=== PATIENT | female | born 1990 | race American Indian/Alaskan Native ===

== ENCOUNTER 2019-03-28 11:24 | Emergency (ER) | payer OTHER ==
[2019-03-28] MEDS ORDERED: NACL 0.9% 1000 ML 1,000 ML IV ONE ×2 (11:48→11:55)
[2019-03-28] MEDS ORDERED: MORPHINE IV ONE (11:51)
[2019-03-28] MEDS ORDERED: ZOFRAN IV ONE (11:51)
--- NOTE | 2019-03-28 12:43 | Emergency Department Report ---
ED General Adult HPI - General Chief complaint: Abdominal Pain Stated complaint: ETOH/ABD PAIN Time Seen by Provider: 03/28/19 11:48 Source: patient, EMS Mode of arrival: Stretcher Limitations: No Limitations - History of Present Illness Initial comments: This is a 29-year-old female who presents to the emergency department poorly cooperative, anxious and agitated. As far as I can tell, as she is writhing on the gurney, she has had abdominal pain and vomiting for the past several hours. She will not localize the pain to any specific area of her abdomen. She does not answer questions appropriately. The triage note suggested alcohol abuse. This is actually unknown at this time. Previous electronic medical records on this patient are not found. She states she is never gone to the emergency department for abdominal pain before. She states that she has "already had it" with respect to her menses. Quality: aching Consistency: constant Improves with: none Worsens with: none - Related Data Allergies Allergy/AdvReac Type Severity Reaction Status Date / Time No Known Allergies Allergy Unverified 03/28/19 11:27 ED Review of Systems ROS: Stated complaint: ETOH/ABD PAIN Other details as noted in HPI Comment: Unobtainable due to pts medical conditions ED Past Medical Hx - Past Medical History Previous Medical History?: No Additional medical history: Denies past medical history - Surgical History Past Surgical History?: No - Social History Smoking Status: Current Every Day Smoker Substance Use Type: Alcohol ED Physical Exam - General Limitations: Physical Limitation (writing on the gurney) General appearance: other (agitated) - Head Head exam: Present: atraumatic, normocephalic - Eye Eye exam: Present: normal appearance. Absent: scleral icterus - ENT ENT exam: Present: mucous membranes dry (somewhat) - Neck Neck exam: Present: normal inspection. Absent: tenderness, meningismus - Respiratory Respiratory exam: Present: normal lung sounds bilaterally. Absent: respiratory distress - Cardiovascular Cardiovascular Exam: Present: regular rate, normal rhythm. Absent: systolic murmur, diastolic murmur, rubs, gallop - GI/Abdominal GI/Abdominal exam: Present: soft, normal bowel sounds. Absent: distended, tenderness, guarding, rebound, rigid - Neurological Exam Neurological exam: Present: CN II-XII intact. Absent: motor sensory deficit - Psychiatric Psychiatric exam: Present: agitated, anxious - Skin Skin exam: Present: warm, dry, intact, normal color. Absent: rash ED Course Vital Signs 03/28/19 03/28/19 03/28/19 12:00 12:07 12:28 Temperature 97.8 F Pulse Rate 88 74 Respiratory 15 Rate Blood Pressure 93/63 Blood Pressure 114/71 [Left] O2 Sat by Pulse 100 100 Oximetry - Reevaluation(s) Reevaluation #1: She is given fluid resuscitation. Her initial blood pressure was low. She is given antiemetics. Analgesia is pending with improvement of her blood pressure. Laboratory is pending. 03/28/19 12:43 Reevaluation #2: The patient was given IV fluid. Her vomiting improved. She was given analgesia. She was given antiemetics. She did not even wait for laboratory results. She left without discharge. 03/28/19 14:51 ED Medical Decision Making - Lab Data Result diagrams: 03/28/19 12:28 03/28/19 12:28 Laboratory Results - last 24 hr 03/28/19 03/28/19 03/28/19 12:28 12:28 12:28 WBC 6.1 RBC 4.80 Hgb 14.3 Hct 42.3 MCV 88 MCH 30 MCHC 34 RDW 13.7 Plt Count 288 Lymph % (Auto) 18.5 [place] % (Auto) 1.2 Eos % (Auto) 0.1 Baso % (Auto) 0.6 Lymph # 1.1 L [place] # 0.1 Eos # 0.0 Baso # 0.0 Seg Neutrophils % 79.6 H Seg Neutrophils # 4.8 PT 14.3 INR 1.14 H HCG, Qual Negative Plasma/Serum Alcohol 03/28/19 12:28 WBC RBC Hgb Hct MCV MCH MCHC RDW Plt Count Lymph % (Auto) [place] % (Auto) Eos % (Auto) Baso % (Auto) Lymph # [place] # Eos # Baso # Seg Neutrophils % Seg Neutrophils # PT INR HCG, Qual Plasma/Serum Alcohol 0.05 Laboratory Results - last 24 hr 03/28/19 03/28/19 03/28/19 12:28 12:28 12:28 WBC 6.1 RBC 4.80 Hgb 14.3 Hct 42.3 MCV 88 MCH 30 MCHC 34 RDW 13.7 Plt Count 288 Lymph % (Auto) 18.5 [place] % (Auto) 1.2 Eos % (Auto) 0.1 Baso % (Auto) 0.6 Lymph # 1.1 L [place] # 0.1 Eos # 0.0 Baso # 0.0 Seg Neutrophils % 79.6 H Seg Neutrophils # 4.8 PT 14.3 INR 1.14 H HCG, Qual Negative Plasma/Serum Alcohol 03/28/19 12:28 WBC RBC Hgb Hct MCV MCH MCHC RDW Plt Count Lymph % (Auto) [place] % (Auto) Eos % (Auto) Baso % (Auto) Lymph # [place] # Eos # Baso # Seg Neutrophils % Seg Neutrophils # PT INR HCG, Qual Plasma/Serum Alcohol 0.05 Laboratory Results - last 24 hr 03/28/19 03/28/19 03/28/19 12:28 12:28 12:28 WBC 6.1 RBC 4.80 Hgb 14.3 Hct 42.3 MCV 88 MCH 30 MCHC 34 RDW 13.7 Plt Count 288 Lymph % (Auto) 18.5 [place] % (Auto) 1.2 Eos % (Auto) 0.1 Baso % (Auto) 0.6 Lymph # 1.1 L [place] # 0.1 Eos # 0.0 Baso # 0.0 Seg Neutrophils % 79.6 H Seg Neutrophils # 4.8 PT 14.3 INR 1.14 H Sodium 140 Potassium 4.5 Chloride 105.5 Carbon Dioxide 16 L Anion Gap 23 BUN 8 Creatinine 0.5 L Estimated GFR > 60 BUN/Creatinine Ratio 16 Glucose 126 H Calcium 8.8 Total Bilirubin 0.50 Direct Bilirubin < 0.2 Indirect Bilirubin 0.3 AST 30 ALT 24 Alkaline Phosphatase 53 Total Protein 7.8 Albumin 4.1 Albumin/Globulin Ratio 1.1 Lipase 17 HCG, Qual Plasma/Serum Alcohol Blood Type Antibody Screen 03/28/19 03/28/19 03/28/19 12:28 12:28 12:28 WBC RBC Hgb Hct MCV MCH MCHC RDW Plt Count Lymph % (Auto) [place] % (Auto) Eos % (Auto) Baso % (Auto) Lymph # [place] # Eos # Baso # Seg Neutrophils % Seg Neutrophils # PT INR Sodium Potassium Chloride Carbon Dioxide Anion Gap BUN Creatinine Estimated GFR BUN/Creatinine Ratio Glucose Calcium Total Bilirubin Direct Bilirubin Indirect Bilirubin AST ALT Alkaline Phosphatase Total Protein Albumin Albumin/Globulin Ratio Lipase HCG, Qual Negative Plasma/Serum Alcohol 0.05 Blood Type O POSITIVE Antibody Screen Negative Critical care attestation.: If time is entered above; I have spent that time in minutes in the direct care of this critically ill patient, excluding procedure time. ED Disposition Clinical Impression: Volume depletion, Increased anion gap metabolic acidosis Abdominal pain Qualifiers: Abdominal location: generalized Qualified Code(s): R10.84 - Generalized abdominal pain Vomiting Qualifiers: Vomiting type: unspecified Vomiting Intractability: non-intractable Nausea presence: with nausea Qualified Code(s): R11.2 - Nausea with vomiting, unspecified Disposition: 07 ELOPED Is pt being admited?: No Does the pt Need Aspirin: No Condition: Stable Instructions: Abdominal Pain (ED) Referrals: SARA RAMIREZ MD [Primary Care Provider] - 3-5 Days Time of Disposition: 14:53
[2019-03-28] MEDS ORDERED: TORADOL IV ONE (12:55)
[2019-03-28 12:56] LABS: Basophils % (Auto) 0.6 % (0.0-1.8); Eosinophils % (Auto) 0.1 % (0.0-4.3); Hematocrit 42.3 % (30.3-42.9); Hemoglobin 14.3 gm/dl (10.1-14.3); Lymphocytes # (Auto) 1.1 K/mm3 (1.2-5.4); Lymphocytes % (Auto) 18.5 % (13.4-35.0); Mean Corpuscular HGB Conc 34 % (30-34); Mean Corpuscular Volume 88 fl (79-97); Monocytes # (Auto) 0.1 K/mm3 (0.0-0.8); Monocytes % (Auto) 1.2 % (0.0-7.3); Red Cell Distribution Width 13.7 % (13.2-15.2)
[2019-03-28] MEDS ORDERED: TORADOL ONE (12:58)
[2019-03-28 13:06] LABS: INR 1.14 (0.87-1.13)
[2019-03-28 13:08] LABS: Platelet Count 288 K/mm3 (140-440)
[2019-03-28] MEDS ORDERED: REGLAN IV ONE (13:15)
[2019-03-28 13:24] LABS: Albumin 4.1 g/dL (3.9-5); BUN/Creatinine Ratio 16; Blood Urea Nitrogen 8 mg/dL (7-17); Calcium 8.8 mg/dL (8.4-10.2); Hemolysis Index 106
[2019-03-28 13:27] LABS: Alanine Aminotransferase 24 units/L (7-56); Bilirubin,Direct < 0.2 mg/dL (0-0.2)
[2019-03-28 15:34] VITALS: BP 101/65
== END 2019-03-28 14:28 | disposition left against medical advice (07) ==
LOC: ED 11:24
DX: E86.9 Volume depletion, unspecified (principal); E87.2 Acidosis; R11.10 Vomiting, unspecified; F17.200 Nicotine dependence, unspecified, uncomplicated
CPT/HCPCS: 36415; 80048; 80076; 83690; 84703; 85025; 85610; 86850; 86900; 86901; 96361; 96374; 96375; 99283; G0480; J1885; J2270; J2405; J2765; J7030; 80320

== ENCOUNTER 2019-05-08 03:49 | Emergency (ER) | payer SELFPAY ==
[2019-05-08 04:00] VITALS: BP 118/70
== END 2019-05-08 04:45 | disposition left against medical advice (07) ==
LOC: ED 03:49
DX: R10.9 Unspecified abdominal pain (principal); R11.10 Vomiting, unspecified; Z53.21 Procedure and treatment not carried out due to patient leaving prior to being seen by health care provider